=== PATIENT | male | born 1985 | race American Indian/Alaskan Native ===

== ENCOUNTER 2018-02-13 15:04 | Emergency (ER) | payer OTHER ==
[2018-02-13 16:17] LABS: HEMOGLOBIN 13.2 g/dL (12.0-18.0); MEAN CELL VOLUME 100.7 fL (80.0-94.0); MEAN CORPUSCULAR HEMOGLOBIN 33.3 pg (27.0-31.0); MEAN CORPUSCULAR HGB CONC 33.1 g/dL (33.0-37.0); RBC 3.94 Mil/uL (4.40-5.90); RED CELL DISTRIBUTION WIDTH 12.7 % (11.5-14.5); WHITE BLOOD COUNT 6.3 K/uL (4.8-10.8)
--- NOTE | 2018-02-13 16:17 | C.PDOC ---
History Of Present Illness 32 y/o male with a PMHx of seizure disorder (takes Keppra), brought in by EMS for evaluation s/p seizure just prior to arrival. Patient states he ran out of [place] 2 days ago because he needs to see PMD before getting a refill. Today at work, a coworker witnessed patient having generalized seizure lasting 2 minutes. Patient then returned quickly to baseline. On arrival patient is awake, alert, at baseline. Patient sustained a small abrasion to his lip. Otherwise he denies any pain, urinary incontinence, vomiting, or other injuries. Time Seen by Provider: 02/13/18 15:31 Chief Complaint (Nursing): Seizure History Per: Patient History/Exam Limitations: no limitations Recent Seizure Activity Began: Just Before Arrival Number Of Seizures: One Length Of Seizures (Duration): Minutes (2) Precipitating Factor(s): Missed Dose Of Anti-seizure Medication Past Medical History Reviewed: Historical Data, Nursing Documentation, Vital Signs Vital Signs: Last Vital Signs Temp 97.9 F 02/13/18 15:06 Pulse 78 02/13/18 15:06 Resp 17 02/13/18 15:06 BP 125/83 02/13/18 15:06 Pulse Ox 99 02/13/18 15:06 - Medical History PMH: Asthma, Seizures Family History: States: No Known Family Hx - Social History Hx Tobacco Use: Yes Hx Alcohol Use: Yes Hx Substance Use: No Review Of Systems Constitutional: Negative for: Fever Eyes: Negative for: Vision Change Cardiovascular: Negative for: Chest Pain Respiratory: Negative for: Cough, Shortness of Breath Gastrointestinal: Negative for: Nausea, Vomiting Musculoskeletal: Negative for: Neck Pain, Back Pain Skin: Positive for: Lesions (small abrasion to lip) Neurological: Positive for: Seizures. Negative for: Weakness, Numbness, Dizziness Physical Exam - Physical Exam Appears: Non-toxic, No Acute Distress Skin: Normal Color, Warm, Dry Head: Normacephalic Eye(s): bilateral: Normal Inspection (no nystagmus), PERRL, EOMI Oral Mucosa: Moist Lips: Abrasion (Small abrasion to the left lip, no active bleeding) Neck: Normal ROM Chest: Symmetrical Cardiovascular: Rhythm Regular, No Murmur Respiratory: Normal Breath Sounds, No Rales, No Rhonchi, No Wheezing Gastrointestinal/Abdominal: Soft, No Tenderness, No Distention Extremity: Bilateral: Atraumatic, Normal Color And Temperature, Normal ROM Pulses: Left Dorsalis Pedis: Normal, Right Dorsalis Pedis: Normal Neurological/Psych: Oriented x3, Normal Speech, Normal Cranial Nerves (2-12 intact), Other (No focal deficits) Gait: Steady ED Course And Treatment - Laboratory Results Result Diagrams: 02/13/18 16:12 02/13/18 16:12 O2 Sat by Pulse Oximetry: 99 (RA) Pulse Ox Interpretation: Normal Medical Decision Making Medical Decision Making: Impression: Seizure, missed dose of Keppra Initial Plan: --BMP --CBC --Keppra 750 mg PO Lab results discussed with patient. Stable for discharge home. Rx written for home dose of Keppra. Disposition - Disposition Disposition: HOME/ ROUTINE Disposition Time: 17:35 Condition: STABLE Additional Instructions: SILVIO ABBOTT, thank you for letting us take care of you today. Your provider was Shyanne Ritter MD and you were treated for SEIZURE. The emergency medical care you received today was directed at your acute symptoms. If you were prescribed any medication, please fill it and take as directed. It may take several days for your symptoms to resolve. Return to the Emergency Department if your symptoms worsen, do not improve, or if you have any other problems. Please contact your doctor or call one of the physicians/clinics you have been referred to that are listed on the Patient Visit Information form that is included in your discharge packet. Bring any paperwork you were given at discharge with you along with any medications you are taking to your follow up visit. Our treatment cannot replace ongoing medical care by a primary care provider outside of the emergency department. Thank you for allowing the [facility] team to be part of your care today. If you had an X-Ray or CT scan: A Radiologist will review the ED reading if any change in treatment is needed we will contact you. If you had a blood, urine, or wound culture: It will take several days for the results, if any change in treatment is needed we will contact you. If you had an STI test: It will take 48 hours for the results. Please call after 1 week if you have not heard back. Prescriptions: Levetiracetam [Keppra] 750 mg PO BID #20 tablet Instructions: Seizures, Adult (DC) Forms: [employer] (Khmer) - Clinical Impression Clinical Impression: Seizure - Scribe Statement The provider has reviewed the documentation as recorded by the Clarissaibhollie Walton Provider Attestation: All medical record entries made by the Clarissaibe were at my direction and personally dictated by me. I have reviewed the chart and agree that the record accurately reflects my personal performance of the history, physical exam, medical decision making, and the department course for this patient. I have also personally directed, reviewed, and agree with the discharge instructions and disposition.
[2018-02-13 16:18] LABS: BASO % 0.4 % (0.0-2.0); EOS # 0.1 K/uL (0.0-0.7); LYMPH # 1.4 K/uL (1.0-4.3); LYMPH % 22.1 % (20.0-40.0); MEAN PLATELET VOLUME 10.2 fL (7.2-11.7); MONO # 0.6 K/uL (0.0-0.8); NEUT # 4.2 K/uL (1.8-7.0); NEUT % 66.5 % (50.0-75.0); NRBC % 0.1 % (0.0-2.0)
[2018-02-13 16:28] LABS: BLOOD UREA NITROGEN 8 mg/dL (9-20); CALCIUM 9.5 mg/dl (8.6-10.4); GFR NON-AFRICAN AMERICAN > 60
[2018-02-13 17:33] VITALS: BP 118/70; PULSE 83; RESP 18; TEMP 98.7
[2018-02-13 19:37] VITALS: O2SAT 99
== END 2018-02-13 17:56 | disposition home or self-care (01) ==
LOC: C.ER 15:04
DX: G40.909 Epilepsy, unspecified, not intractable, without status epilepticus (principal)